=== PATIENT | female | born 1985 | race Caucasian/White ===

== ENCOUNTER 2025-01-07 11:16 | Emergency (ER) | payer MEDICAID ==
[~2025-01-07] VITALS: Ht 147.3 cm; Wt 60.1 kg
[2025-01-07 11:29] VITALS: BP 110/40; PULSE 69; RESP 18; O2SAT 99
--- NOTE | 2025-01-07 13:16 | Physician Documentation ---
History of Present Illness ~ Chief Complaint: See Chief Complaint Stated Complaint: COVID Time Seen by MD: 12:29 HPI Patient is seen today with complaints of cough congestion fever chills body aches and runny nose and sore throat. Patient denies any shortness of breath or chest pain or abdominal pain or nausea, vomiting, diarrhea. Patient states she just needs a note for work. She has no other concern or complaint at this time. Medication Reconciliation Allergies: Coded Allergies: fentanyl (Verified Allergy, Intermediate, RASH, 01/07/25) Review of Systems Constitutional: Denies: chills, fever, weakness Eyes: Denies: pain, blurred vision ENT: Denies: ear pain, nose pain, throat pain, mouth pain Respiratory: Denies: cough, shortness of breath Cardiovascular: Denies: chest pain, palpitations Gastrointestinal: Denies: abdominal pain, nausea, vomiting Genitourinary: Denies: burning, dysuria Female Genitalia: Denies: vaginal discharge, pelvic pain Neurological: Denies: headache, dizziness Musculoskeletal: Denies: pain, swelling Integumentary: Denies: rash, lesions Allergic/Immunologic: Denies: hives, itching Hematologic/Lymphatic: Denies: no symptoms reported Psychiatric: Denies: depression, anxiety Physical Exam Vital Signs: Temperature: 97.3, Source: Oral, Heart Rate: 69, Respiratory Rate: 18, BP: 110/40, Pulse Oximetry: 99, Weight: 60.100 Oxygen Flow Rate: 0 Physical Exam General: Awake and Alert, no acute distress. HEENT: Conjunctiva pink, Sclera clear, Mucus Membranes moist. Neck: Supple without masses and tenderness. Resp: Unlabored. Lungs clear to auscultation bilaterally. Heart: Regular Rate and rhythm, normal S1 and S2 without murmur, rub or gallop. Abdomen: Soft and non tender no organomegaly Extremities: No cyanosis,clubbing or edema. Skin: Warm and Dry. Progress Results/Orders Results/Orders Orders - DANELLE FRYE Covid19 Binax Poc Result Entry (01/07/25 11:27) Vital Signs 01/07/25 11:29 Temp 97.3 Pulse 69 Resp 18 B/P (MAP) 110/40 Pulse Ox 99 O2 Flow Rate 0 Laboratory Tests Test 01/07/25 11:30 SARS-CoV-2 Antigen (Rapid) Positive *A Medical Decision Making Findings Patient is seen today with complaints of cough congestion fever chills body aches and runny nose and sore throat for last 3-4 days. Patient denies any shortness of breath or chest pain or abdominal pain or nausea, vomiting, diarrhea. Patient states she just needs a note for work. She has no other concern or complaint at this time. Patient did test positive for COVID in the ED today. Patient will be excused from work. Patient will continue Tylenol and ibuprofen as needed for symptomatic relief. Patient will follow up with primary care in 2-5 days if no better as needed sooner. Return to ED with any worsening, concerning or changing symptoms. Departure Disposition: HOME / SELF CARE / HOMELESS Impression: Primary Impression: Acute COVID-19 Condition: Stable Additional Instructions: Patient did test positive for COVID in the ED today. Patient will be excused from work. Patient will continue Tylenol and ibuprofen as needed for symptomatic relief. Patient will follow up with primary care in 2-5 days if no better as needed sooner. Return to ED with any worsening, concerning or coy ing symptoms. Departure Forms: Excuse form Work or School Excused From: Work Excuse beginning now through the following date: Jan 11, 2025 Referrals: NO PRIMARY CARE PROVIDER (PCP) Signature Scribe Signature: No scribe Attestation: No scribe DANELLE FRYE Jan 07, 2025 13:16
[2025-01-07 13:55] VITALS: TEMP 97.3
== END 2025-01-07 13:59 | disposition home or self-care (01) ==
LOC: ER 11:17
DX: U07.1 COVID-19 (principal); R05.9 Cough, unspecified; R09.81 Nasal congestion; J02.9 Acute pharyngitis, unspecified; R09.89 Other specified symptoms and signs involving the circulatory and respiratory systems; Z88.5 Allergy status to narcotic agent
CPT/HCPCS: 36415; 87811; 99283